=== PATIENT | male | born 1995 | race Caucasian/White ===

== ENCOUNTER 2018-04-24 20:16 | Emergency (ER) | payer OTHER, MEDICAID ==
[~2018-04-24] VITALS: Ht 172.7 cm; Wt 75.0 kg
[2018-04-24 20:18] VITALS: BP 161/95
== END 2018-04-24 22:39 | disposition home or self-care (01) ==
LOC: ER 20:16
DX: R68.89 Other general symptoms and signs (principal); F17.200 Nicotine dependence, unspecified, uncomplicated; F12.10 Cannabis abuse, uncomplicated
CPT/HCPCS: 99283